=== PATIENT | female | born 2000 | race Caucasian/White ===

== ENCOUNTER 2021-02-04 23:29 | Emergency (ER) | payer SELFPAY ==
[2021-02-05] MEDS ORDERED: Dexamethasone 10 MG/ML VIAL ONE
[2021-02-05 05:29] LABS: SARS-CoV-2 PCR by NAA Not Detected (NotDetected)
== END 2021-02-05 00:47 | disposition home or self-care (01) ==
LOC: ERS 23:29
DX: J06.9 Acute upper respiratory infection, unspecified (principal); Z20.822 Contact with and (suspected) exposure to COVID-19
CPT/HCPCS: 87081; 87430; 87635; 99283; J1100; U0003; U0005

== ENCOUNTER 2022-05-17 09:45 | Inpatient (IN) | payer SELFPAY ==
[2022-05-17 10:23] LABS: #Basophils 0.1 thou/uL (0.0-0.2); #Lymphocytes 2.2 thou/uL (1.20-3.40); %Basophils 0.8 % (0.0-1.0); %Eosinophils 0.2 % (0.0-10.0); %Lymphocytes 19.1 % (21.0-51.0); %Monocytes 9.1 % (0.0-10.0); %Neutrophils 70.8 % (42.0-75.0); Mean Corpuscular HGB CONC 32.9 g/dL (32.0-36.0); Mean Corpuscular Volume 97.3 fL (78.0-98.0); Platelet Count 280 thou/uL (130-400); RBC Distribution Width 11.9 % (11.5-14.5); White Blood Cell (WBC) Count 11.3 thou/uL (4.8-10.8)
[2022-05-17 10:48] LABS: ALT (SGPT) 155 U/L (8-55); AST (SGOT) 178 U/L (5-34); Albumin 4.3 g/dL (3.5-5.0); Alkaline Phosphatase 100 U/L (40-110); Anion Gap 14 mmol/L (10-20); BUN (Urea Nitrogen) 8 mg/dL (7.0-18.7); Bilirubin, Total 0.9 mg/dL (0.2-1.2); Calc. Creatinine Clearance 0 mL/min (70-130); Calcium 9.7 mg/dL (7.8-10.44); Carbon Dioxide 24 mmol/L (22-29); Chloride 106 mmol/L (98-107); Estimated GFR 101; Globulin 2.5 g/dL (2.4-3.5); Glucose 112 mg/dL (70-105); Potassium 3.9 mmol/L (3.5-5.1); Protein, Total 6.8 g/dL (6.0-8.3); Sodium 140 mmol/L (136-145)
[2022-05-17 11:18] LABS: Lipase 12474 U/L (8-78)
[2022-05-17] MEDS ORDERED: Dicyclomine 20 MG/2 ML VIAL ONE (12:00)
[2022-05-17] MEDS ORDERED: Morphine 4 MG/ML VIAL ONE (12:00)
[2022-05-17] MEDS ORDERED: Ondansetron PF 4 MG/2 ML Vial ONE (12:00)
[2022-05-17] MEDS ORDERED: Senokot S 8.6-50 MG TAB PO PRN (13:10)
[2022-05-17] MEDS ORDERED: Guaifenesin DM 100-10/5 ML UDCUP PO PRN (13:10)
[2022-05-17 13:26] LABS: Hemoglobin A1c 4.8 % (4.0-6.0)
[2022-05-17 15:32] LABS: Acetaminophen Less than 10.0 mcg/mL (10.0-30.0); Alcohol Less than 10 mg/dL (Less than 10); Salicylate Less than 8.0 mg/dL (15.0-30.0)
[2022-05-17 17:08] VITALS: BMI 35.4
[2022-05-17 17:53] LABS: SARS-CoV-2 NAA Rapid Test Not Detected (NotDetected)
[2022-05-17] MEDS: Morphine 2 MG/ML VIAL SLOW IVP PRN ×2 (17:57→22:21)
[2022-05-17] MEDS: Ondansetron PF 4 MG/2 ML Vial IVP PRN (17:57)
[2022-05-17] MEDS: Sodium Chloride 0.9% 1,000 ML IV SCH ×2 (17:59→20:54)
[2022-05-17] MEDS: Acetaminophen 325 MG TAB PO PRN (20:53)
[2022-05-17] MEDS: Pantoprazole 40 MG VIAL IVP SCH (20:54)
[2022-05-18] MEDS: Morphine 2 MG/ML VIAL SLOW IVP PRN ×2 (02:04→06:00)
[2022-05-18] MEDS: Acetaminophen 325 MG TAB PO PRN (02:04)
[2022-05-18] MEDS: Ondansetron PF 4 MG/2 ML Vial IVP PRN ×2 (02:05→09:44)
[2022-05-18] MEDS: Sodium Chloride 0.9% 1,000 ML IV SCH ×4 (02:06→12:54)
[2022-05-18 05:48] LABS: #Eosinphils 0.1 thou/uL (0.0-0.7); #Lymphocytes 3.7 thou/uL (1.20-3.40); #Monocytes 0.6 thou/uL (0.11-0.59); #Neutrophils 4.2 thou/uL (1.40-6.50); %Basophils 0.6 % (0.0-1.0); %Lymphocytes 43.2 % (21.0-51.0); %Neutrophils 48.3 % (42.0-75.0); Hemoglobin 12.9 g/dL (12.0-16.0); Mean Corpuscular HGB CONC 32.4 g/dL (32.0-36.0); Mean Corpuscular Hemoglobin 32.1 pg (27.0-31.0); Mean Corpuscular Volume 99.2 fL (78.0-98.0); Mean Platelet Volume 10.4 fL (7.4-10.4); Platelet Count 226 thou/uL (130-400); RBC Distribution Width 11.7 % (11.5-14.5); Red Blood Cell (RBC) Count 4.01 mill/uL (4.20-5.40); White Blood Cell (WBC) Count 8.7 thou/uL (4.8-10.8)
[2022-05-18 06:15] LABS: ALT (SGPT) 79 U/L (8-55); AST (SGOT) 45 U/L (5-34); Albumin 3.4 g/dL (3.5-5.0); Alkaline Phosphatase 69 U/L (40-110); Anion Gap 14 mmol/L (10-20); BUN (Urea Nitrogen) 8 mg/dL (7.0-18.7); Bilirubin, Total 0.7 mg/dL (0.2-1.2); Calc. Creatinine Clearance 180 mL/min (70-130); Calcium 8.9 mg/dL (7.8-10.44); Carbon Dioxide 19 mmol/L (22-29); Cardiac Risk 3.6 (Less than 4.5); Chloride 113 mmol/L (98-107); Cholesterol 120 mg/dl (< 200 Desired); Estimated GFR 125; Globulin 2.4 g/dL (2.4-3.5); Glucose 72 mg/dL (70-105); HDL Cholesterol 33 mg/dL (>60 Neg Risk); LDL Cholesterol, Calculated 77 mg/dL; Lipase 477 U/L (8-78); Potassium 4.2 mmol/L (3.5-5.1); Protein, Total 5.8 g/dL (6.0-8.3); Sodium 142 mmol/L (136-145); Triglycerides 52 mg/dL (Less than 150)
[2022-05-18] MEDS ORDERED: Enoxaparin Sodium 40 MG/0.4 ML SYRINGE SC SCH (09:00)
[2022-05-18] MEDS: Pantoprazole 40 MG VIAL IVP SCH (09:36)
[2022-05-18] MEDS ORDERED: Bupivacaine/Epinephrine 0.25% 30 ML VIAL ONE (15:35)
[2022-05-18] MEDS ORDERED: Iopamidol 30 ML ONE (15:35)
[2022-05-18] MEDS ORDERED: Scopolamine 1.5 mg/72 hour Patch ONE (16:58)
[2022-05-18] MEDS ORDERED: Ketorolac Tromethamine 30 MG/ML VIAL ONE (16:58)
[2022-05-18] MEDS ORDERED: traMADol HCl 50 MG TAB PO PRN (16:58)
[2022-05-18] MEDS ORDERED: Ketorolac Tromethamine 30 MG/ML VIAL IVP SCH (17:00)
[2022-05-18] MEDS ORDERED: Acetaminophen 500 MG TAB PO SCH (17:00)
[2022-05-18] MEDS ORDERED: Scopolamine 1.5 mg/72 hour Patch TD SCH (17:00)
[2022-05-18] MEDS ORDERED: Acetaminophen 500 MG TAB PO PRN (17:00)
[2022-05-18] MEDS ORDERED: fentaNYL Citrate/PF 100 MCG/2 ML SYRINGE ONE (17:06)
[2022-05-18] MEDS ORDERED: Levofloxacin 500 mg/D5W 100 ml Premix Bag ONE (17:08)
[2022-05-18] MEDS ORDERED: SUGAMMADEX SODIUM 200 MG/2 ML VIAL ONE (17:11)
[2022-05-18] MEDS ORDERED: Rocuronium Bromide 10 MG/ML (10ML VIAL) ONE (17:15)
[2022-05-18] MEDS ORDERED: Glycopyrrolate 0.2 MG/ML 5 ML SYRINGE ONE (17:15)
[2022-05-18] MEDS ORDERED: Neostigmine Methylsulfate 3 MG/3 ML SYRINGE ONE (17:15)
[2022-05-18] MEDS ORDERED: Ondansetron PF 4 MG/2 ML Vial ONE (17:15)
[2022-05-18] MEDS ORDERED: PROPOFOL 200 MG/20 ML VIAL ONE (17:15)
[2022-05-18] MEDS ORDERED: Dexamethasone 20 MG/5 ML VIAL ONE (17:15)
[2022-05-18 20:39] VITALS: BP 114/73; TEMP 97.9
[2022-05-18] MEDS ORDERED: Ibuprofen 200 MG TAB PO PRN (22:00)
== END 2022-05-18 20:45 | disposition home or self-care (01) | DRG 417 ==
LOC: ERS 09:45 → T4-A 13:06
PROVIDERS: ADMIT Specialist; ATTEND Internal Medicine
PROC: 0FT44ZZ Resection of Gallbladder, Percutaneous Endoscopic Approach (ICD-10-PCS; principal; 2022-05-18)
PROC: BF131ZZ Fluoroscopy of Gallbladder and Bile Ducts using Low Osmolar Contrast (ICD-10-PCS; 2022-05-18)
DX: K80.63 Calculus of gallbladder and bile duct with acute cholecystitis with obstruction (principal); K85.10 Biliary acute pancreatitis without necrosis or infection; Z20.822 Contact with and (suspected) exposure to COVID-19; J45.909 Unspecified asthma, uncomplicated; F31.9 Bipolar disorder, unspecified; F60.3 Borderline personality disorder; F14.10 Cocaine abuse, uncomplicated; E66.01 Morbid (severe) obesity due to excess calories; F17.290 Nicotine dependence, other tobacco product, uncomplicated; F41.9 Anxiety disorder, unspecified; Z90.49 Acquired absence of other specified parts of digestive tract; Z90.89 Acquired absence of other organs; Z68.35 Body mass index [BMI] 35.0-35.9, adult; Z98.890 Other specified postprocedural states; Z83.3 Family history of diabetes mellitus; Z81.8 Family history of other mental and behavioral disorders; Z83.49 Family history of other endocrine, nutritional and metabolic diseases; Z79.3 Long term (current) use of hormonal contraceptives
CPT/HCPCS: 36415; 47532; 76705; 80053; 80061; 80307; 83036; 83690; 85025; 88304; 96361; 96372; 96374; 96375; C1713; C9113; J1100; J1610; J1650; J1885; J1956; J2270; J2405; J2704; J7050; Q9967; U0002

== ENCOUNTER 2022-05-18 23:35 | Emergency (ER) | payer SELFPAY ==
[2022-05-19] MEDS ORDERED: Ibuprofen 200 MG TAB ONE (00:26)
== END 2022-05-19 00:36 | disposition home or self-care (01) ==
LOC: ERS 23:35
DX: G89.18 Other acute postprocedural pain (principal); M25.511 Pain in right shoulder
CPT/HCPCS: 99281

== ENCOUNTER 2022-05-20 16:36 | Emergency (ER) | payer SELFPAY | END 2022-05-20 17:55 | disposition home or self-care (01) | LOC: ERS 16:36 | DX: Z48.815 Encounter for surgical aftercare following surgery on the digestive system (principal); S30.1XXA Contusion of abdominal wall, initial encounter; Y83.8 Other surgical procedures as the cause of abnormal reaction of the patient, or of later complication, without mention of misadventure at the time of the procedure | CPT/HCPCS: 99282 ==